=== PATIENT | male | born 1950 | race Caucasian/White ===

== ENCOUNTER → 2017-08-20 | Outpatient (CLI) | payer MEDICARE, BC ==
[2017-08-20 11:17] LABS: Basophils % (A) 1 %; CH 31.4; CHCM 33.9; Eosinophils # (A) 0.3 k/uL (0-0.7); Eosinophils % (A) 4 %; HCT 47.2 % (39.0-53.0); HDW 2.62; HGB 15.3 gm/dL (13.0-17.5); Luc # (Auto) 0.25; Luc % (Auto) 4; Lymphocytes # (A) 1.6 k/uL (1.0-4.8); Lymphocytes % (A) 24 %; MCH 30.2 pg (25.0-35.0); MCHC 32.4 g/dL (31.0-37.0); MCV 93.2 fL (80.0-100.0); Mean Platelet Volume 6.4; Monocytes # (A) 0.5 k/uL (0-1.0); Monocytes % (A) 8 %; Neutrophils # (A) 3.9 k/uL (1.3-7.7); Neutrophils % (A) 60 %; RBC 5.06 m/uL (4.30-5.90); RDW 14.3 % (11.5-15.5); WBC 6.5 k/uL (3.8-10.6); WBC (Perox) 6.45
[2017-08-20 11:34] LABS: Potassium 5.5 mmol/L (3.5-5.1)
== END | disposition home or self-care (01) ==
LOC: LABWHC1 10:22
PROVIDERS: ATTEND Orthopaedic Surgery
DX: Z01.812 Encounter for preprocedural laboratory examination (principal); M65.321 Trigger finger, right index finger; E11.9 Type 2 diabetes mellitus without complications
CPT/HCPCS: 36415; 80051; 82947; 85025